=== PATIENT | female | born 1995 | race Caucasian/White ===

== ENCOUNTER 2016-12-28 12:35 | Emergency (ER) | payer OTHER, BC ==
[~2016-12-28] VITALS: Ht 170.2 cm; Wt 64.0 kg
[2016-12-28 12:41] VITALS: Ht 170.2 cm; Wt 64.0 kg
[2016-12-28] MEDS ORDERED: BCPILLS PO (12:49)
[2016-12-28 13:15] VITALS: BP 127/72; PULSE 72; TEMP 36.9; O2SAT 94
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
== END 2016-12-28 13:05 | disposition home or self-care (01) ==
LOC: C.EDB 12:37 → C.EDD 13:05
DX: S40.012A Contusion of left shoulder, initial encounter (principal); S30.0XXA Contusion of lower back and pelvis, initial encounter; S39.012A Strain of muscle, fascia and tendon of lower back, initial encounter; S20.211A Contusion of right front wall of thorax, initial encounter; V89.2XXA Person injured in unspecified motor-vehicle accident, traffic, initial encounter; Z79.3 Long term (current) use of hormonal contraceptives

== ENCOUNTER → 2018-01-09 | Outpatient (CLI) | payer BC ==
[~2018-01-09] MED LIST: BCPILLS PO
== END | disposition home or self-care (01) ==
LOC: C.RDSM 13:03
PROVIDERS: ATTEND Family Medicine
DX: N94.89 Other specified conditions associated with female genital organs and menstrual cycle (principal)